=== PATIENT | male | born 1960 | race Caucasian/White ===

== ENCOUNTER 2019-05-07 12:17 | Outpatient (CLI) | payer OTHER ==
--- NOTE | 2019-05-07 14:45 | ULT ---
.THYROID ULTRASOUND: HISTORY: Thyroid nodule. TECHNIQUE: Multiplanar, sanders scale, and color Doppler images were obtained in a thyroid ultrasound. FINDINGS: There is a cyst in the isthmus of the thyroid measuring 4 mm in size. No solid nodules are seen in t he thyroid lobes. The thyroid lobes measure 4.7 and 4.3 cm in length on the right and left, respecti vely. IMPRESSION: Thyroid cyst. POS: [facility]
== END 2019-05-07 12:18 | disposition home or self-care (01) ==
LOC: BICULT 12:17
PROVIDERS: ATTEND Internal Medicine Cardiovascular Disease
DX: E04.1 Nontoxic single thyroid nodule (principal)
CPT/HCPCS: 76536